=== PATIENT | female | born 1975 | race Caucasian/White ===

== ENCOUNTER 2019-04-02 08:08 | Day surgery (SDC) | payer OTHER ==
[~2019-04-02] VITALS: Ht 157.5 cm; Wt 72.6 kg
[~2019-04-02 08:08] MED LIST: ACET-7740 PO
[2019-04-02] MEDS ORDERED: fentaNYL 0.05 MG/ML VIAL ONE (10:29)
[2019-04-02] MEDS ORDERED: LIDOCAINE 2% 100 MG/5 ML UJET TP ONE (10:29)
[2019-04-02] MEDS ORDERED: MIDAZOLAM 2 MG/2 ML VIAL ONE (11:57)
[2019-04-02] MEDS ORDERED: MIDAZOLAM 2 MG/2 ML VIAL IVP ONE (12:30)
[2019-04-02] MEDS ORDERED: fentaNYL 0.05 MG/ML VIAL IVP ONE (12:30)
== END 2019-04-02 12:45 | disposition home or self-care (01) ==
LOC: MDS 08:08 → MMU 08:15 → MDS 12:45
PROVIDERS: ATTEND Internal Medicine Gastroenterology
DX: D50.9 Iron deficiency anemia, unspecified (principal); F17.210 Nicotine dependence, cigarettes, uncomplicated; Z79.899 Other long term (current) drug therapy; Z96.641 Presence of right artificial hip joint; Z98.890 Other specified postprocedural states; Z90.721 Acquired absence of ovaries, unilateral; Z90.81 Acquired absence of spleen
CPT/HCPCS: 45378; J2250; J3010

== ENCOUNTER 2019-06-25 06:11 | Day surgery (SDC) | payer OTHER ==
[~2019-06-25] VITALS: Ht 157.5 cm; Wt 74.4 kg
[2019-06-25] MEDS ORDERED: fentaNYL 0.05 MG/ML VIAL ONE ×2 (08:18→13:10)
[2019-06-25] MEDS ORDERED: LIDOCAINE 2% 100 MG/5 ML UJET TP ONE ×2 (08:19→13:10)
[2019-06-25] MEDS ORDERED: SODIUM PHOSPHATE 118 ML ENEM RC PRN (09:00)
[2019-06-25] MEDS ORDERED: fentaNYL 0.05 MG/ML VIAL IVP ONE (13:11)
== END 2019-06-25 14:00 | disposition home or self-care (01) ==
LOC: MDS 06:11 → MMU 06:12 → MDS 09:59
PROVIDERS: ATTEND Internal Medicine Gastroenterology
DX: D12.9 Benign neoplasm of anus and anal canal (principal); D50.9 Iron deficiency anemia, unspecified; F17.200 Nicotine dependence, unspecified, uncomplicated
CPT/HCPCS: 45385; 81025; J3010